=== PATIENT | male | born 1985 ===

== ENCOUNTER 2021-03-08 19:00 | Emergency (ER) | payer SELFPAY ==
[~2021-03-08] VITALS: Ht 170 cm; Wt 77.0 kg
--- NOTE | 2021-03-08 19:48 | ED Respiratory ---
General Chief Complaint: Respiratory Problems Stated Complaint: SOB,BACK PAIN,EYE PAIN Nursing Triage Note: Pt ambulates to Ed 9 with c/o back pain, eye pain, and shortness of breath, states it started 3 days ago. States he cannot get a deep breath Source: patient Exam Limitations: no limitations History of Present Illness Date Seen by Provider: Mar 08, 2021 Time Seen by Provider: 19:48 Initial Comments 3-day history of shortness of breath cough bilateral eye burning. Timing/Duration: constant Severity: moderate Associated Symptoms: cough, fever/chills, shortness of breath Allergies and Home Medications Patient Home Medication List Home Medication List Reviewed: Yes Review of Systems Review of Systems Constitutional: see HPI, chills, malaise, weakness EENTM: eye pain Respiratory: see HPI, cough Cardiovascular: no symptoms reported Genitourinary: no symptoms reported Musculoskeletal: no symptoms reported Skin: no symptoms reported Psychiatric/Neurological: No Symptoms Reported Hematologic/Lymphatic: No Symptoms Reported Past [id number]-[id number] Hx Patient Social History Tobacco Use?: Yes Tobacco type used: Cigarettes Smoking Status: Current Everyday Smoker Use of E-Cig and/or Vaping dev: No Substance use?: Yes Substance type: Marijuana Additional substance use comme: occasional THC Substance frequency: Once in a while Alcohol Use?: Yes Alcohol type: Beer Alcohol Frequency: Daily Pt feels they are or have been: No Immunizations Up To Date Influenza Vaccine Up-to-Date: No; Not Current Physical Exam Vital Signs - First Documented 03/08/21 19:15 Temp 36.1 Pulse 68 Resp 16 B/P (MAP) 126/85 (99) Pulse Ox 99 O2 Delivery Room Air Capillary Refill : Less Than 3 Seconds Height: '" Weight: lbs. oz. kg; 26.00 BMI Method: General Appearance: WD/WN, no apparent distress Eyes: Bilateral Eye Normal Inspection, Bilateral Eye PERRL, Bilateral Eye EOMI HEENT: PERRL/EOMI, normal ENT inspection, TMs normal Neck: non-tender, full range of motion Respiratory: no respiratory distress, no accessory muscle use Cardiovascular: regular rate, rhythm, no murmur Gastrointestinal: normal bowel sounds, non tender, soft Neurologic/Psychiatric: alert, normal mood/affect, oriented x 3 Skin: normal color, warm/dry Progress/Results/Core Measures Suspected Sepsis SIRS Temperature: Pulse: 68 Respiratory Rate: 16 Blood Pressure 126 /85 Mean: 99 Results/Orders Lab Results Laboratory Tests Test 03/08/21 19:12 Range/Units Influenza Type A (RT-PCR) Not Detected Not Detecte Influenza Type B (RT-PCR) Not Detected Not Detecte SARS-CoV-2 RNA (RT-PCR) Detected H Not Detecte My Orders Orders - MIN OZUNA APRN Covid 19 Inhouse Test (03/08/21 19:14) Influenza A And B By Pcr (03/08/21 19:14) Vital Signs/I&O 03/08/21 19:15 Temp 36.1 Pulse 68 Resp 16 B/P (MAP) 126/85 (99) Pulse Ox 99 O2 Delivery Room Air Capillary Refill : Less Than 3 Seconds Blood Pressure Mean: 99 Departure Impression Primary Impression: COVID-19 Disposition: 01 HOME, SELF-CARE Condition: Stable Departure-Patient Inst. Decision time for Depature: 19:53 Referrals: NO,LOCAL PHYSICIAN (PCP/Family) Primary Care Physician Patient Instructions: COVID-19 (DC) Add. Discharge Instructions: 1. Tylenol and ibuprofen for body aches fevers and chills. Unfortunately your symptoms will persist for about 10 days. All discharge instructions reviewed with patient and/or family. Voiced understanding. Work/School Note: Work Release Form Date Seen in the Emergency Department: Mar 08, 2021 Return to Work: Mar 16, 2021 MIN OZUNA APRN Mar 08, 2021 19:48
[2021-03-08 20:17] VITALS: BP 126/85
== END 2021-03-08 20:17 | disposition home or self-care (01) ==
LOC: ER 19:04
DX: U07.1 COVID-19 (principal); F17.210 Nicotine dependence, cigarettes, uncomplicated
CPT/HCPCS: 87636; 99282